=== PATIENT | male | born 1995 | race Caucasian/White ===

== ENCOUNTER 2017-03-24 18:43 | Emergency (ER) | payer BC ==
[2017-03-24 19:36] VITALS: BP 100/69
[2017-03-24] MEDS ORDERED: Amoxicillin CAP* 500 MG PO ONE (20:19)
--- NOTE | 2017-03-24 20:27 | UC ---
Umesh Sawyer Rebecca, scribed for Paris Park MD on 03/24/17 at 1959 . Respiratory Complaint HPI - HPI Summary HPI Summary: Pt is a 21 y/o M who presents to [facility] c/o allergy induced asthma exacerbation. Reports every year around spring "something comes up." Typically caused by grass, pollen, trees and mold. Pt c/o frontal STAPLETON, productive cough, sinus congestion, nasal drainage and ear pressure. Productive cough brings up yellow/white sputum. Pt reports PND. Sx began gradually 1 week ago. Associated pain is currently mild, ranked 3/10. Sx aggravated and alleviated by nothing, unchanged by Mucinex. Has been taking Zyrtec, Flonase and Xopenex as needed as well. Sx unchanged by steam from showering. Denies wheezing. Pt is a student, currently in the middle of finals. + sick contact. + lives in dorm. He is flying home at the end of the month to [place], [place]. No medication allergies. - History of Current Complaint Chief Complaint: UCRespiratory Stated Complaint: COUGH Time Seen by Provider: 03/24/17 19:47 Hx Obtained From: Patient Onset/Duration: Gradual Onset, Still Present Severity Initially: Mild Severity Currently: Mild Pain Intensity: 3 Pain Scale Used: 0-10 Numeric Character: Cough: Productive Aggravating Factors: Nothing Alleviating Factors: Nothing Associated Signs And Symptoms: Positive: Nasal Congestion. Negative: Wheezing Related History: Seasonal Allergies - Allergies/Home Medications Allergies/Adverse Reactions: Allergies Allergy/AdvReac Type Severity Reaction Status Date / Time No Known Allergies Allergy Verified 03/24/17 19:36 Home Medications: Home Medications Dexmethylphenidate HCl [Focalin Xr] 30 mg PO 03/24/17 [History] Doxycycline Hyclate [Acticlate] 150 mg PO 03/24/17 [History] PMH/Surg Hx/FS Hx/Imm Hx Previously Healthy: Yes Endocrine History Of: Denies: Diabetes Cardiovascular History Of: Denies: Hypertension Respiratory History Of: Reports: Asthma - allergy induced asthma - Surgical History Surgical History: Yes Surgery Procedure, Year, and Place: oral - Family History Known Family History: Negative: Hypertension - Social History Occupation: Student Alcohol Use: Rare Substance Use Type: None Smoking Status (MU): Never Smoked Tobacco Review of Systems Constitutional: Negative Skin: Negative Eyes: Negative ENT: Ear Ache - pressure, Nasal Discharge, Other - Sinus congestion Respiratory: Cough - productive Cardiovascular: Negative Gastrointestinal: Negative Genitourinary: Negative Motor: Negative Neurovascular: Negative Musculoskeletal: Negative Neurological: Headache - temporal Psychological: Negative All Other Systems Reviewed And Are Negative: Yes Physical Exam Triage Information Reviewed: Yes Appearance: Well-Appearing, No Pain Distress, Well-Nourished Vital Signs: Initial Vital Signs Temp 98.3 F 03/24/17 19:32 Pulse 84 03/24/17 19:32 Resp 18 03/24/17 19:32 BP 100/69 03/24/17 19:32 Pulse Ox 100 03/24/17 19:32 Vital Signs Reviewed: Yes Eye Exam: Normal Eyes: Positive: Conjunctiva Clear. Negative: Conjunctiva Inflamed ENT: Positive: TMs normal - right TM + fluid, erythem. left TM - slight fluid turbinates inflammed + PND no erythema, exudate uvula midline Dental Exam: Normal Neck exam: Normal Neck: Positive: Supple, Nontender, No Lymphadenopathy Respiratory Exam: Normal Respiratory: Positive: Chest non-tender, Lungs clear, Normal breath sounds, Other: - no cough, speaking full, easy sentences Cardiovascular Exam: Normal Cardiovascular: Positive: RRR, No Murmur Abdominal Exam: Normal Abdomen Description: Positive: Nontender, No Organomegaly, Soft Bowel Sounds: Positive: Present Musculoskeletal Exam: Normal Musculoskeletal: Positive: Strength Intact Neurological Exam: Normal Neurological: Positive: Alert Psychological Exam: Normal Skin Exam: Normal UC Diagnostic Evaluation - Laboratory O2 Sat by Pulse Oximetry: 100 Respiratory Course/Dx - Course Course Of Treatment: Patient medications reviewed this visit. Pt with sinus congesiton, ear pain,frontal STAPLETON. exam with right TM, PND, inflammed turbinates. Will give AMox. secretion hygeine. f/u prn. continue with flonase, zyrtec - Differential Dx/Diagnosis Provider Diagnoses: sinusitis. right OM Discharge - Discharge Plan Condition: Stable Disposition: HOME Prescriptions: Amoxicillin (*) [Amoxicillin 875 MG (*)] 875 mg PO BID #14 tab Patient Education Materials: Sinusitis (ED), Otitis Media (ED) Additional Instructions: - Stay well hydrated. Drink plenty of non-alcoholic, non-caffinated beverages. - Continue to take your medications as previously prescribed including flonase, zyrtec, and xopenex. - Take antibiotics as prescribed - After you have been on antibiotics for 2 days - change your toothbrush and your pillowcase. These infections are spread by secretions - do NOT share eating or drinking utensils - clean items you share with other people such as cell phones, computer mouse, TV remote, computer tablets, etc - get plenty of restful sleep The documentation as recorded by the Umesh tobar Rebecca accurately reflects the service I personally performed and the decisions made by me, Paris Park MD.
== END 2017-03-24 20:53 | disposition home or self-care (01) ==
LOC: UCEAST 18:43
DX: J32.9 Chronic sinusitis, unspecified (principal); H66.91 Otitis media, unspecified, right ear; J45.909 Unspecified asthma, uncomplicated
CPT/HCPCS: 99212; A9270-GY; G0463

== ENCOUNTER 2017-07-26 03:27 | Emergency (ER) | payer BC ==
[2017-07-26 05:12] VITALS: BP 116/78
--- NOTE | 2017-07-26 08:01 | ED ---
Umesh Sawyer Rebecca, scribed for Edvin Esparza MD on 07/26/17 at 0504 . Allergic Reaction/Systemic - HPI Summary HPI Summary: Pt is a 22 y/o M BIBA who presents to ED c/o allergic reaction. Pt reports that at approximately 0235 he began experiencing coughing, then gagging and lastly throat tightening. After the onset of throat tightening, he self injected an Epi -Pen which alleviated sx. Denies any rash or pruritis. PMHx allergy-induced asthma for which he has an inhaler and has been using increasingly often due to bronchitis. 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 Prior similar episode in [place] last summer after having wine. - History of Current Complaint Chief Complaint: EDAllergicReaction Time Seen by Provider: 07/26/17 04:55 Hx Obtained From: Patient Onset/Duration: Started hours ago, Still Present Severity Currently: None Pain Intensity: 0 Pain Scale Used: 0-10 Numeric Aggravating Factor(s): Nothing Alleviating Factor(s): Epinephrine Associated Signs And Symptoms: Positive: Cough Wheezing, Throat Tightening, Other: - Gagging - Allergies/Home Medications Allergies/Adverse Reactions: Allergies Allergy/AdvReac Type Severity Reaction Status Date / Time No Known Allergies Allergy Verified 03/24/17 19:36 PMH/Surg Hx/FS Hx/Imm Hx Endocrine/Hematology History: Denies: Hx Diabetes Cardiovascular History: Denies: Hx Hypertension Respiratory History: Reports: Hx Asthma - allergy induced asthma - Surgical History Surgery Procedure, Year, and Place: oral Infectious Disease History: No Infectious Disease History: Denies: Traveled Outside the [place] in Last 30 Days - Family History Known Family History: Negative: Hypertension - Social History Occupation: Student Alcohol Use: Occasionally Substance Use Type: Reports: None Smoking Status (MU): Never Smoked Tobacco Review of Systems Positive: Other - Throat tightening, gagging Positive: Cough Positive: Other - NEGATIVE: pruritis. Negative: Rash All Other Systems Reviewed And Are Negative: Yes Physical Exam - Summary Physical Exam Summary: The patient is well-nourished in no acute distress and in no acute pain. The skin is warm and dry and skin color reflects adequate perfusion. He has no hives or urticaria. HEENT: The head is normocephalic and atraumatic. The pupils are equal and reactive. The conjunctivae are clear and without drainage. Nares are patent and without drainage. Mouth reveals moist mucous membranes and the throat is without erythema and exudate. The external ears are intact. The ear canals are patent and without drainage. The tympanic membranes are intact. Neck is supple with full range of motion and non-tender. There is no stridor in the neck. Respiratory: Chest is non-tender. Lungs are clear to auscultation with no rales , rhonchi and wheezing and breath sounds are symmetrical and equal. Cardiovascular: Hear is regular rate and rhythm. There is no murmur or rub auscultated. There is no peripheral edema and pulses are symmetrical and equal. Musculoskeletal: There is no back pain noted. Extremities are non-tender with full range of motion. There is good capillary refill. There is no peripheral edema or calf tenderness elicited. Neurological: Patient is alert and oriented to person, place and time. Psychiatric: The patient has an appropriate affect and does not exhibit any anxiety or depression. Triage Information Reviewed: Yes Vital Signs On Initial Exam: Initial Vitals Temp Pulse Resp BP Pulse Ox 99.1 F 98 16 131/73 100 07/26/17 03:30 07/26/17 03:30 07/26/17 03:30 07/26/17 03:30 07/26/17 03:30 Vital Signs Reviewed: Yes - Radha Coma Scale Coma Scale Total: 15 Diagnostics - Vital Signs Vital Signs Temp Pulse Resp BP Pulse Ox 07/26/17 04:09 94 99 07/26/17 03:39 101 100 07/26/17 03:30 99.1 F 98 16 131/73 100 - Laboratory Lab Statement: Any lab studies that have been ordered have been reviewed, and results considered in the medical decision making process. Re-Evaluation - Re-Evaluation First Eval Re-Evaluation Time: 05:04 Change: Improved Comment: Symptoms have improved. Allergic Reaction Course/Dx - Course Assessment/Plan: Pt is a 22 y/o M BIBA who presents to ED c/o allergic reaction. Pt reports that at approximately 0235 he began experiencing coughing, then gagging and lastly throat tightening. After the onset of throat tightening , he self injected an Epi-Pen which alleviated sx. Denies any rash or pruritis. PMHx allergy-induced asthma for which he has an inhaler and has been using increasingly often due to bronchitis. 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 Prior similar episode in [place] last summer after having wine. After 2.5 hours of observation in the ED after self-injeciton of Epi-Pen, the pt is asymptomatic and feels significant improved. He will be D/C to home with Dx of allergic reactoin and anaphylactic reactoin with a follow up with Dr. Hobbs. He understands and agrees. Elevated BP noted and advised to f/u. - Diagnoses Provider Diagnoses: Allergic reaction, Anaphylactic reaction Discharge - Discharge Plan Condition: Stable Disposition: HOME Patient Education Materials: Anaphylaxis (ED) Referrals: Reny Hobbs MD [Medical Doctor] - 3 Days The documentation as recorded by the Umesh tobar Rebecca accurately reflects the service I personally performed and the decisions made by me, Edvin Esparza MD.
== END 2017-07-26 05:18 | disposition home or self-care (01) ==
LOC: ED 03:27
DX: T78.2XXA Anaphylactic shock, unspecified, initial encounter (principal); X58.XXXA Exposure to other specified factors, initial encounter; Y92.9 Unspecified place or not applicable
CPT/HCPCS: 99282

== ENCOUNTER 2017-09-16 20:18 | Emergency (ER) | payer BC ==
[2017-09-16] MEDS ORDERED: NS 0.9% 1000 ML* 1,000 ML IV ONE (21:23)
[2017-09-16] MEDS ORDERED: Ondansetron INJ* 2 MG/ML VIAL IV ONE (21:23)
[2017-09-16 22:31] VITALS: BP 122/75
--- NOTE | 2017-09-17 03:45 | ED ---
Lizz Sawyer Edward, scribed for Marlen Mcnair MD on 09/16/17 at 2115 . Abdominal Pain/Male - HPI Summary HPI Summary: 22 y/o male presents to the ED c/o intermittent N/V and ABD pain starting a couple of days ago. Pt is not able to keep any food down. Pt has not urinated since 13:00 today. Associated sx: diarrhea yesterday, STAPLETON, blurred vision aggravated with standing and moving, neck pain, ear ache yesterday. PMHx ADHD. - History of Current Complaint Chief Complaint: EDAbdPain Stated Complaint: VOMITING Time Seen by Provider: 09/16/17 21:01 Hx Obtained From: Patient Onset/Duration: Lasting Days Timing: Intermittent - N/V Aggravating Factor(s): Food Alleviating Factor(s): Nothing Associated Signs And Symptoms: Positive: Urinary Symptoms - Decreased urination , Nausea, Vomiting, Diarrhea, Other - STAPLETON, blurred vision, neck pain, ear ache - Allergies/Home Medications Allergies/Adverse Reactions: Allergies Allergy/AdvReac Type Severity Reaction Status Date / Time No Known Allergies Allergy Verified 09/16/17 20:30 Home Medications: Home Medications Guanfacine HCl (Adhd) [Intuniv] 2 mg PO DAILY 09/16/17 [History Confirmed ] PMH/Surg Hx/FS Hx/Imm Hx Previously Healthy: No Endocrine/Hematology History: Denies: Hx Diabetes Cardiovascular History: Denies: Hx Hypertension Respiratory History: Reports: Hx Asthma - allergy induced asthma Psychiatric History: Reports: Hx Attention Deficit Hyperactivity Disorder - Surgical History Surgery Procedure, Year, and Place: oral Infectious Disease History: No Infectious Disease History: Reports: Traveled Outside the [place] in Last 30 Days - [place] - Family History Known Family History: Negative: Hypertension - Social History Alcohol Use: Occasionally Substance Use Type: Reports: None Smoking Status (MU): Never Smoked Tobacco Review of Systems Constitutional: Negative Positive: Blurred Vision Positive: Ear Ache Cardiovascular: Negative Respiratory: Negative Positive: Abdominal Pain, Vomiting, Diarrhea, Nausea Positive: frequency - decreased urination Positive: Arthralgia - Neck pain Skin: Negative Positive: Headache Psychological: Normal All Other Systems Reviewed And Are Negative: No Physical Exam - Summary Physical Exam Summary: Appearance: Alert, conversive, nontoxic appearing Skin: Warm, dry, no mottling, no rashes, no contusions HEENT: EOMI, PERRL, moist mucous membranes Neck: No masses on the neck, supple. No meningeal signs. Respiratory: Clear to auscultation, breath sounds present, no rales, no rhonchi , no wheezes Cardiovascular: RRR, pulses are symmetrical in both lower and upper extremities Abdomen: Soft, non-tender Bowel Sounds: Present Musculoskeletal: No CVA tenderness, no obvious deformity, moving all extremities in a grossly normal manner Neurological: A&Ox3, CN II-XII Intact, moving all extremities symmetrically Psychiatric: Normal affect and mood Triage Information Reviewed: Yes Vital Signs On Initial Exam: Initial Vitals Temp Pulse Resp BP Pulse Ox 98.4 F 88 16 129/77 100 09/16/17 20:27 09/16/17 20:27 09/16/17 20:27 09/16/17 20:27 09/16/17 20:27 Vital Signs Reviewed: Yes Diagnostics - Vital Signs Vital Signs Temp Pulse Resp BP Pulse Ox 09/16/17 20:27 98.4 F 88 16 129/77 100 - Laboratory Lab Statement: Any lab studies that have been ordered have been reviewed, and results considered in the medical decision making process. Re-Evaluation - Re-Evaluation 1 Re-Evaluation Time: 22:21 Change: Improved - Pt is feeling much better. Pt is hungry. Abdominal Pain Fem Course/Dx - Course Assessment/Plan: 22 y/o male presents to the ED c/o intermittent N/V and ABD pain starting a couple of days ago. Pt is not able to keep any food down. Pt has not urinated since 13:00 today. Associated sx: diarrhea yesterday, STAPLETON, blurred vision aggravated with standing and moving, neck pain, ear ache yesterday. PMHx ADHD. On re-eval pt is feeling much better and feels hungry. Pt will be d/c home with f/u with PCP. - Diagnoses Provider Diagnoses: Dehydration, Vomiting, Diarrhea Discharge - Discharge Plan Condition: Stable Disposition: HOME Patient Education Materials: Acute Nausea and Vomiting (ED), Acute Diarrhea (ED ) Referrals: Non Staff,Doctor [Primary Care Provider] - Additional Instructions: Drink plenty of fluids. eat a bland diet for the next 1-2 days. it is important to follow up with the campus md in 1-2 days. return if worse or any new symptoms. The documentation as recorded by the Lizz tobar Edward accurately reflects the service I personally performed and the decisions made by , Marlen Mcnair MD.
== END 2017-09-16 22:44 | disposition home or self-care (01) ==
LOC: ED 20:18
DX: E86.0 Dehydration (principal); R11.10 Vomiting, unspecified; R19.7 Diarrhea, unspecified; R39.198 Other difficulties with micturition; R51 Headache; H53.8 Other visual disturbances; M54.2 Cervicalgia; H92.09 Otalgia, unspecified ear; J45.909 Unspecified asthma, uncomplicated; F90.9 Attention-deficit hyperactivity disorder, unspecified type
CPT/HCPCS: 96374; 99283; J2405